=== PATIENT | male | born 1970 | race African-American/Black ===

== ENCOUNTER 2021-08-24 09:19 | Emergency (ER) | payer OTHER ==
[~2021-08-24] VITALS: Ht 190.5 cm; Wt 119.5 kg
[2021-08-24 15:54] LABS: APPEARANCE,URINE CLEAR (CLEAR); BILIRUBIN,URINE NEGATIVE (NEGATIVE); GLUCOSE, URINE (UA) NEGATIVE (NEGATIVE); KETONES,URINE NEGATIVE (NEGATIVE); LEUKOCYTE ESTERASE ,URINE NEGATIVE (NEGATIVE); NITRATE,URINE NEGATIVE (NEGATIVE); OCCULT BLOOD,URINE NEGATIVE (NEGATIVE); PH,URINE 6.5 (5.0-8.0); PROTEIN,URINE NEGATIVE (NEGATIVE); UROBILINOGEN,URINE 0.2 mg/dL (<=1.0)
[2021-08-24 15:58] LABS: BACTERIA,URINE Rare /HPF (None Seen); RBC,URINE None Seen /HPF (0-2); WBC,URINE 0-2 /HPF (0-5)
[2021-08-24 16:00] VITALS: BP 121/83
== END 2021-08-24 16:22 | disposition home or self-care (01) ==
LOC: EMS 09:24
DX: I86.1 Scrotal varices (principal)
CPT/HCPCS: 76870; 81001; 99284; Z7502